=== PATIENT | female | born 1970 | race Two or more races ===

== ENCOUNTER → 2024-02-14 | Outpatient (CLI) | payer BC, SELFPAY ==
--- NOTE | 2024-02-14 14:30 | XR_ITS ---
Examination: Transvaginal ultrasound of the pelvis, complete Technique: Transvaginal sonographic images pelvis performed using camilo scale imaging Exam date and time: February 14, 2024 1446 hours INDICATIONS: Pelvic pain beginning one month ago FINDINGS: Absent uterus Ovaries obscured by bowel gas No free fluid in the pelvis IMPRESSION: Limited study, ovaries obscured by bowel gas No free fluid in the pelvis No solid mass in the pelvis demonstrated.
--- NOTE | 2024-02-14 14:30 | XR_ITS ---
Examination: Pelvic ultrasound, transabdominal, complete Technique: Transabdominal ultrasound of the pelvis performed using grayscale imaging Date and time of exam: February 14, 2024 1446 hours INDICATIONS: Pelvic pain beginning one month ago FINDINGS: Absent uterus Right ovary 1.7 x 1.1 x 1.6 cm arterial flow Left ovary 1.9 x 1.2 x 1.2 cm arterial flow No fluid in the cul-de-sac IMPRESSION: No adnexal mass Negative for ovarian torsion
== END | disposition home or self-care (01) ==
PROVIDERS: PCP Obstetrics & Gynecology; Referring Provider Obstetrics & Gynecology; Visit Provider Obstetrics & Gynecology
DX: R10.2 Pelvic and perineal pain (principal)
CPT/HCPCS: 76830; 76856

== ENCOUNTER → 2024-02-18 | Outpatient (CLI) | payer BC, SELFPAY ==
--- NOTE | 2024-02-18 09:15 | XR_ITS ---
Examination: Screening digital mammography, bilateral Computer aided detection 3-D breast Tomosynthesis, bilateral Date and time of exam: February 18, 2024 0918 hours Compared to mammograms dating to November 30, 2016 Indication: Screening Technique: Nonmagnified MLO, CC views of the breasts to been obtained, reconstructed from 3-D Tomosynthesis images. R2 computer aided detection program utilized for evaluation of suspicious masses and/or abnormal calcifications. 3-D Tomosynthesis images obtained. Findings: The breasts are heterogeneously dense, which may obscure small masses Stable focal asymmetry outer right breast compared to earlier studies No interval suspicious masses Impression: BI-RADS category II: Benign Findings. Recommend 1 year follow-up mammogram.
== END | disposition home or self-care (01) ==
LOC: CDIM 09:05
PROVIDERS: Referring Provider Obstetrics & Gynecology; Visit Provider Obstetrics & Gynecology
DX: Z12.31 Encounter for screening mammogram for malignant neoplasm of breast (principal); R92.323 Mammographic fibroglandular density, bilateral breasts
CPT/HCPCS: 77063; 77067

== ENCOUNTER → 2024-05-04 | Outpatient (CLI) | payer BC, SELFPAY ==
--- NOTE | 2024-05-04 14:30 | XR_ITS ---
Examination: MRI of brain without intravenous contrast. MRI brain with intravenous contrast. Date and time of exam:May 04, 2024 1551 hours Comparison April 06, 2021 INDICATIONS: Intermittent headaches since 2011, posterior parafalcine enhancing meningioma 14 x 14 x 10 mm on brain MRI April 06, 2021 Technique: Multiple axial and sagittal images of the brain to been obtained. Siemens high-resolution 1.52 Maeve short bore scanner utilized. Sagittal sections, T1 weighted images, TR 500, TE 14, are performed. Axial sections proton-density and T2-weighted images have been obtained. Inversion recovery axial images, TR 9260, TE 111, TR 2500. Diffusion weighted images, axial sections, TR 4800, TE 128, B value 1000. Axial sections, ADC map, TR 4800, TE 128. Axial and coronal images were also obtained post 20 cc gadolinium administered intravenously. Findings:: Enlargement of the sella turcica is not present. The optic chiasm and infundibular stalk are not remarkable. There is no localized enlargement of the medulla or tod. Fourth ventricle and cerebellar tonsils appear normal in position. No subacute area of hemorrhage density is seen. Fourth ventricle is midline. Mass in the cerebellopontine angle region is not evident. 7th and 8th nerve complexes exhibit symmetry Globes are symmetrical Orbital musculature including medial lateral rectus muscles do not exhibit abnormality Increased white matter signal is again noted punctate foci increased signal in the white matter Effacement of the cortical sulcal markings is not identified. Mass effect upon the ventricular system is not identified. Diffusion-weighted images demonstrate no focus of restricted diffusion Contrast images demonstrate stable enhancing posterior parafalcine lesion 14 x 13 x 10 mm Impression: Demyelinating disease Stable small enhancing posterior parafalcine meningioma
== END | disposition home or self-care (01) ==
PROVIDERS: Referring Provider Internal Medicine; Visit Provider Internal Medicine
DX: G37.9 Demyelinating disease of central nervous system, unspecified (principal); D32.9 Benign neoplasm of meninges, unspecified
CPT/HCPCS: 70553; A9579

== ENCOUNTER → 2024-08-21 | Outpatient (CLI) | payer BC, SELFPAY ==
--- NOTE | 2024-08-21 16:51 | XR_ITS ---
Examination going the lateral chest 2 views TECHNIQUE: Upright PA and lateral chest 2 views Date and time: August 21, 2024 1655 hours INDICATIONS: Asthma today attack FINDINGS: Reduced inspiratory effort Suspicious for early pneumonia left base Right lung clear IMPRESSION: Suspicious for early left base pneumonia
== END | disposition home or self-care (01) ==
PROVIDERS: PCP Internal Medicine; Referring Provider Nurse Practitioner Family; Visit Provider Nurse Practitioner Family
DX: R91.8 Other nonspecific abnormal finding of lung field (principal); J45.901 Unspecified asthma with (acute) exacerbation
CPT/HCPCS: 71046